=== PATIENT | female | born 1960 | race African-American/Black ===

== ENCOUNTER 2017-03-23 18:34 | Emergency (ER) | payer OTHER ==
[~2017-03-23] VITALS: Ht 162.6 cm; Wt 74.4 kg
[~2017-03-23 18:34] MED LIST: BACTRIM DS TAB1 EACH PO; CLONIDINE0.1; FLEXERIL PO; HYCET 7.5 MG-3473 ML PO; LORTAB 10 MG-3473 ML PO; MICARDIS HCT 81 EAC1 PO; MICARDIS40 MG PO; MUCOSA400 MG PO; NORCO 5-325 TA1 EACH PO; NORFLEX100 MG PO; NORVASC10 MG PO; OXYCODONE HCL 55 MG PO; OXYCONTIN10 M1 PO; PERCOCET 5-3251 EACH PO; PHENERGAN 25 MG25 M1 PO; PREDNISONE 20 M20 M1 PO; PREDNISONE 20 M20 MG PO; ROXICODONE5 M1 PO; ULTRAM 50MG TAB50 MG PO; VENTOLIN HFA 1818 GM INH; ZOFRAN ODT4 MG PO; ZPAK PO
[2017-03-23] MEDS ORDERED: NORFLEX100 MG PO (19:11)
[2017-03-23] MEDS ORDERED: CATAPRES0.2 MG PO (19:11)
[2017-03-23] MEDS ORDERED: PREDNISONE 10 M10 MG PO (19:11)
[2017-03-23] MEDS ORDERED: GABAPENTIN 100100 MG PO (19:11)
[2017-03-23 19:35] VITALS: BP 147/103
== END 2017-03-23 20:00 | disposition home or self-care (01) ==
LOC: ER 18:34
DX: M54.32 Sciatica, left side (principal); I10 Essential (primary) hypertension; R20.2 Paresthesia of skin; F17.210 Nicotine dependence, cigarettes, uncomplicated; Z76.0 Encounter for issue of repeat prescription; Z90.49 Acquired absence of other specified parts of digestive tract; Z98.890 Other specified postprocedural states; Z88.1 Allergy status to other antibiotic agents; Z88.6 Allergy status to analgesic agent; Z88.0 Allergy status to penicillin; Z88.8 Allergy status to other drugs, medicaments and biological substances

== ENCOUNTER 2017-09-28 19:45 | Inpatient (IN) | payer OTHER ==
[~2017-09-28] VITALS: Ht 162.6 cm; Wt 82.6 kg
--- NOTE | ~2017-09-28 | EKG ---
[address] [address] ELECTROCARDIOGRAM REPORT Name: ADDISON HARTMAN Room #: 443-P ADM IN M.R.#: [id number] Admission: 09/28/17 Attend Phys: Jaxon Barrera MD Discharge: Date of : 62 Report #: [id number] THIS REPORT FOR: //name// [facility] ED Test Date: 2017-09-28 Test Time: 20:41:14 Pat Name: ADDISON HARTMAN Department: Room: 44 Gender: F Flatwork Folder: GUSTAVO : 1960 Requested By: Cristofer Garza Order Number: [id number] MD: Ramin Spears Measurements Intervals [place] Rate: 87 P: 69 HI: 140 QRS: 55 QRSD: 82 T: 56 QT: 485 QTc: 584 Interpretive Statements Sinus rhythm Atrial premature complex Repol abnrm suggests ischemia, diffuse leads Prolonged QT interval No previous ECG available for comparison Electronically Signed On 09-29-2017 9:24:32 FILM DEVELOPING MACHINE OPERATOR by Ramin Spears [email or web address] <ELECTRONICALLY SIGNED> By: Ramin Spears MD 09/29/17923 40 2041 Ramin Spears MD /GINNY
[~2017-09-28 19:45] MED LIST changes: +CATAPRES0.2 MG PO; -CLONIDINE0.1; +CLONIDINE0.1 PO; +GABAPENTIN 100100 MG PO; +PREDNISONE 10 M10 MG PO
[2017-09-28 20:19] VITALS: BP 142/81
[2017-09-28 20:54] LABS: HEMATOCRIT 32.6 % (37.0-47.0); HEMOGLOBIN 11.3 gm/dL (12.0-15.0); MCH 29.3 pg (26.0-34.0); MCHC 34.7 g/dL (28.0-37.0); MCV 84.4 fL (80.0-100.0); RBC 3.86 mil/uL (4.20-5.00); RDW 15.2 % (10.5-14.5); WBC 10.6 thou/uL (4.0-11.0)
[2017-09-28 20:57] LABS: MANUAL DIFF YES
[2017-09-28 21:04] LABS: ANION GAP 9 mmol/L (7-16); BUN 10 mg/dL (7-18); CALCIUM 8.8 mg/dL (8.5-10.1); CHLORIDE 95 mmol/L (98-107); CO2 32 mmol/L (21-32); CREATININE 0.7 mg/dL (0.6-1.0); GLUCOSE 147 mg/dL (74-106); SODIUM 136 mmol/L (136-145)
[2017-09-28 21:13] LABS: ALBUMIN 3.3 g/dL (3.4-5.0); ALKALINE PHOSPHATASE 99 U/L (46-116); MAGNESIUM 1.7 mg/dL (1.8-2.4); SGOT 31 U/L (15-37); SGPT 23 U/L (30-65); TOTAL BILIRUBIN 0.4 mg/dL (<0.1-1.0); TOTAL PROTEIN 6.4 g/dL (6.4-8.2); TROPONIN-I < 0.04 ng/mL (<0.06)
[2017-09-28 21:14] LABS: POTASSIUM 2.9 mmol/L (3.5-5.1)
[2017-09-28] MEDS ORDERED: TRAMADOL 50 MG50 MG PO (21:46)
[2017-09-28] MEDS ORDERED: POTASSIUM20 PO (21:46)
[2017-09-28] MEDS ORDERED: DOXYCYCLINE 10100 MG PO (21:46)
[2017-09-28] MEDS ORDERED: ZOFRAN ODT8 MG PO (21:51)
[2017-09-28 22:06] LABS: ABSOLUTE NEUTROPHILS 9.2 thou/uL (1.4-8.2); ANISOCYTOSIS SLIGHT; LARGE PLATELETS OCCASIONAL; PLATELET COUNT 168 thou/uL (150-400); TOTAL CELL COUNT 100
[2017-09-28 22:27] LABS: URINE BILIRUBIN NEGATIVE (Negative); URINE BLOOD 2+ (Negative); URINE COLOR YELLOW; URINE GLUCOSE-RANDOM* NEGATIVE (Negative); URINE KETONES NEGATIVE (Negative); URINE PROTEIN (DIPSTICK) 1+ (Negative); URINE UROBILINOGEN 0.2 E.U./dl (0.2-1.0)
[2017-09-28 22:33] LABS: URINE LEUKOCYTES-REFLEX 1+ (Negative)
[2017-09-28 22:43] LABS: SQUAMOUS >10 Many /LPF (0-3)
[2017-09-28 22:44] LABS: CASTS None Seen /LPF (None Seen); URINE RBC 3-10 Few /HPF (0-2); URINE WBC-REFLEX 0-5 Rare /HPF (0-5)
[2017-09-28 22:45] LABS: CRYSTALS None Seen /LPF (None Seen)
[2017-09-28 22:56] VITALS: BP 131/71
[2017-09-28 23:21] VITALS: BP 109/55
[2017-09-29 04:00] VITALS: BP 140/97
[2017-09-29] MEDS ORDERED: CLONIDINE HCL0.3 M2 PO (05:37)
[2017-09-29 08:00] VITALS: BP 117/70
[2017-09-29 09:29] LABS: HEMATOCRIT 33.5 % (37.0-47.0); MCH 28.7 pg (26.0-34.0); MCHC 32.8 g/dL (28.0-37.0); MCV 87.6 fL (80.0-100.0); RBC 3.83 mil/uL (4.20-5.00); RDW 15.4 % (10.5-14.5); WBC 13.2 thou/uL (4.0-11.0)
[2017-09-29 09:34] LABS: CALCIUM 8.3 mg/dL (8.5-10.1); CREATININE 1.1 mg/dL (0.6-1.0); MAGNESIUM 1.9 mg/dL (1.8-2.4)
[2017-09-29 09:40] LABS: POTASSIUM 2.9 mmol/L (3.5-5.1)
[2017-09-29 12:28] LABS: ABG SAMPLE TYPE ARTERIAL; HCO3 28.7 mmol/L (22.0-26.0); LACTATE 3.02 mmol/L (0.5-2.0); O2(CT) 14.4 mL/dL (15.0-23.0); O2Hb 91.2 % (92.0-98.0); PCO2 39.1 mmHg (35.0-45.0); PO2 62.7 mmHg (80.0-100.0); pH 7.484 (7.360-7.450); sO2 93.6 % (92.0-98.0); tCO2 29.9 mmol/L (24.0-30.0)
[2017-09-29 12:29] LABS: FIO2 21 %; STICK SITE L.RADIAL
[2017-09-29 16:00] VITALS: BP 125/85
[2017-09-30 04:53] VITALS: BP 144/90
[2017-09-30 05:29] LABS: HEMATOCRIT 30.5 % (37.0-47.0); HEMOGLOBIN 10.1 gm/dL (12.0-15.0); MCH 28.8 pg (26.0-34.0); MCV 87.3 fL (80.0-100.0); PLATELET COUNT 209 thou/uL (150-400); RBC 3.49 mil/uL (4.20-5.00); RDW 15.4 % (10.5-14.5); WBC 14.3 thou/uL (4.0-11.0)
[2017-09-30 05:35] LABS: MANUAL DIFF YES
[2017-09-30 05:40] LABS: CALCIUM 7.7 mg/dL (8.5-10.1); CREATININE 0.7 mg/dL (0.6-1.0); POTASSIUM 3.4 mmol/L (3.5-5.1)
[2017-09-30 07:28] LABS: ABSOLUTE NEUTROPHILS 12.9 thou/uL (1.4-8.2); TOTAL CELL COUNT 100
[2017-09-30 07:29] LABS: ANISOCYTOSIS 1+
[2017-09-30 07:58] VITALS: BP 118/79
[2017-09-30] MEDS ORDERED: AZITHROMYCIN 2250 MG PO (10:11)
[2017-09-30] MEDS ORDERED: OXYCONTIN10 M1 PO (10:11)
[2017-09-30] MEDS ORDERED: CEFUROXIME500 MG PO (10:11)
[2017-09-30] MEDS ORDERED: PROTONIX 20 MG20 MG PO (10:11)
[2017-09-30] MEDS ORDERED: ALBUTEROL2.5 MG/0.5 INH (10:11)
[2017-09-30 10:42] VITALS: BP 118/79
== END 2017-09-30 14:58 | disposition home or self-care (01) | DRG 189 ==
LOC: ER 19:45 → EROBS 22:06 → 4S 22:57
PROVIDERS: Emergency Medicine; Hospitalist; Nurse Practitioner Family
DX: J96.21 Acute and chronic respiratory failure with hypoxia (principal); J18.9 Pneumonia, unspecified organism; J44.0 Chronic obstructive pulmonary disease with (acute) lower respiratory infection; N39.0 Urinary tract infection, site not specified; J44.1 Chronic obstructive pulmonary disease with (acute) exacerbation; E87.2 Acidosis; G89.29 Other chronic pain; I10 Essential (primary) hypertension; F12.90 Cannabis use, unspecified, uncomplicated; F17.210 Nicotine dependence, cigarettes, uncomplicated; M54.9 Dorsalgia, unspecified; E87.6 Hypokalemia; E83.42 Hypomagnesemia; M06.9 Rheumatoid arthritis, unspecified; Z87.442 Personal history of urinary calculi; Z79.899 Other long term (current) drug therapy; Z90.49 Acquired absence of other specified parts of digestive tract; Z88.6 Allergy status to analgesic agent; Z88.8 Allergy status to other drugs, medicaments and biological substances; Z88.0 Allergy status to penicillin
CPT/HCPCS: 10195

== ENCOUNTER 2017-10-12 13:01 | Emergency (ER) | payer OTHER ==
[~2017-10-12] VITALS: Ht 162.6 cm; Wt 72.6 kg
[~2017-10-12 13:01] MED LIST changes: +ALBUTEROL2.5 MG/0.5 INH; +AZITHROMYCIN 2250 MG PO; +CEFUROXIME500 MG PO; +CLONIDINE HCL0.3 M2 PO; +DOXYCYCLINE 10100 MG PO; +POTASSIUM20 PO; +PROTONIX 20 MG20 MG PO; +TRAMADOL 50 MG50 MG PO; +ZOFRAN ODT8 MG PO
[2017-10-12 15:23] LABS: ABSOLUTE NEUTROPHILS 3.4 thou/uL (1.4-8.2); BASOPHILS 1.1 % (0.0-2.0); EOSINOPHILS 0.9 % (0.0-3.0); HEMATOCRIT 37.9 % (37.0-47.0); HEMOGLOBIN 12.6 gm/dL (12.0-15.0); LYMPHOCYTES 36.6 % (24.0-44.0); MCH 28.9 pg (26.0-34.0); MCHC 33.1 g/dL (28.0-37.0); MCV 87.2 fL (80.0-100.0); MONOCYTES 7.1 % (1.0-8.0); PLATELET COUNT 279 thou/uL (150-400); POLYS 54.3 % (36.0-66.0); RBC 4.35 mil/uL (4.20-5.00); RDW 15.6 % (10.5-14.5); WBC 6.3 thou/uL (4.0-11.0)
[2017-10-12 15:36] LABS: CALCIUM 8.7 mg/dL (8.5-10.1)
[2017-10-12 16:20] VITALS: BP 122/70
== END 2017-10-12 16:21 | disposition home or self-care (01) ==
LOC: ER 13:01
PROVIDERS: Emergency Medicine
DX: F14.10 Cocaine abuse, uncomplicated (principal); E87.6 Hypokalemia; G89.29 Other chronic pain; M54.9 Dorsalgia, unspecified; I10 Essential (primary) hypertension; M19.90 Unspecified osteoarthritis, unspecified site; J45.909 Unspecified asthma, uncomplicated; F17.210 Nicotine dependence, cigarettes, uncomplicated; Z87.442 Personal history of urinary calculi; Z90.49 Acquired absence of other specified parts of digestive tract; Z88.1 Allergy status to other antibiotic agents; Z88.6 Allergy status to analgesic agent; Z88.0 Allergy status to penicillin

== ENCOUNTER 2019-03-01 11:57 | Emergency (ER) | payer OTHER ==
[~2019-03-01] VITALS: Ht 162.6 cm; Wt 77.1 kg
[2019-03-01] MEDS ORDERED: OXYCODONE HCL10 MG PO (12:29)
[2019-03-01] MEDS ORDERED: HYDROXYZINE HCL25 M1 PO (12:30)
[2019-03-01 12:59] VITALS: BP 165/100
== END 2019-03-01 12:59 | disposition home or self-care (01) ==
LOC: ER 11:57
DX: F41.9 Anxiety disorder, unspecified (principal); I10 Essential (primary) hypertension; G89.29 Other chronic pain; M54.9 Dorsalgia, unspecified; J44.9 Chronic obstructive pulmonary disease, unspecified; J45.909 Unspecified asthma, uncomplicated; M06.9 Rheumatoid arthritis, unspecified; Z87.442 Personal history of urinary calculi; Z88.1 Allergy status to other antibiotic agents; Z90.49 Acquired absence of other specified parts of digestive tract; Z88.6 Allergy status to analgesic agent; Z88.0 Allergy status to penicillin; Z88.8 Allergy status to other drugs, medicaments and biological substances

== ENCOUNTER 2019-03-02 23:49 | Emergency (ER) | payer OTHER ==
[~2019-03-02] VITALS: Ht 162.6 cm; Wt 77.1 kg
[~2019-03-02 23:49] MED LIST changes: +HYDROXYZINE HCL25 M1 PO; +OXYCODONE HCL10 MG PO
[2019-03-03 00:56] LABS: ABSOLUTE NEUTROPHILS 4.6 thou/uL (1.4-8.2); BASOPHILS 1.3 % (0.0-2.0); HEMOGLOBIN 13.7 gm/dL (12.0-15.0); LYMPHOCYTES 40.2 % (24.0-44.0); MCH 27.4 pg (26.0-34.0); MCHC 33.3 g/dL (28.0-37.0); MCV 82.2 fL (80.0-100.0); MONOCYTES 8.5 % (1.0-8.0); PLATELET COUNT 321 thou/uL (150-400); RBC 4.99 mil/uL (4.20-5.00); RDW 16.1 % (10.5-14.5); WBC 9.3 thou/uL (4.0-11.0)
[2019-03-03 01:12] LABS: ANION GAP 11 mmol/L (7-16); BUN 14 mg/dL (7-18); CALCIUM 9.8 mg/dL (8.5-10.1); CHLORIDE 102 mmol/L (98-107); CO2 27 mmol/L (21-32); CREATININE 0.8 mg/dL (0.6-1.0); GLUCOSE 121 mg/dL (74-106); SODIUM 140 mmol/L (136-145); TROPONIN-I <0.06 ng/mL (<0.06)
[2019-03-03 01:21] LABS: POTASSIUM 2.7 mmol/L (3.5-5.1)
[2019-03-03 02:00] LABS: URINE BILIRUBIN 1+ (Negative); URINE BLOOD NEGATIVE (Negative); URINE CLARITY CLEAR; URINE COLOR YELLOW; URINE GLUCOSE-RANDOM* NEGATIVE (Negative); URINE KETONES NEGATIVE (Negative); URINE LEUKOCYTES NEGATIVE (Negative); URINE NITRITE NEGATIVE (Negative); URINE PROTEIN (DIPSTICK) TRACE (Negative); URINE UROBILINOGEN 0.2 E.U./dl (0.2-1.0)
[2019-03-03 03:24] LABS: CREATININE 0.6 mg/dL (0.6-1.0); POTASSIUM 4.6 mmol/L (3.5-5.1)
[2019-03-03 05:29] VITALS: BP 134/95
--- NOTE | 2019-03-03 08:16 | EKG ---
[address] [address] ELECTROCARDIOGRAM REPORT Name: ADDISON HARTMAN Room #: DEP Barby#: [id number] ������������������ Admission: 03/02/19 ������������������ Attend Phys: Discharge: 03/03/19 ������������������ Date of : 62 Report #: [id number] ����������������������������������������������������������������� [id number] THIS REPORT FOR: //name// [facility] ED Test Date: 2019-03-03 Test Time: 00:27:54 Pat Name: ADDISON HARTMAN Department: Room: Gender: F Tourist Information Assistant: teofilo : 1960 Requested By: Jolie Mehta Order Number: [id number] MD: Adria Angelo Measurements Intervals [place] Rate: 72 P: 40 GA: 135 QRS: 35 QRSD: 81 T: 52 QT: 438 QTc: 480 Interpretive Statements Sinus rhythm Compared to ECG 09/28/2017 20:41:14 Atrial premature complex(es) no longer present Early repolarization no longer present Possible ischemia no longer present Electronically Signed On 03-03-2019 8:16:34 CDT by Adria Angelo [email or web address] ��������������������������������������������� <ELECTRONICALLY SIGNED> ���������������������������������������� By: Adria Angelo MD ��������������������������������������������� 03/03/19 0816 0027 0027 Adria Angelo MD /GINNY
== END 2019-03-03 05:31 | disposition home or self-care (01) ==
LOC: ER 23:49
PROVIDERS: Student in an Organized Health Care Education/Training Program
DX: I10 Essential (primary) hypertension (principal); Z91.14 Patient's other noncompliance with medication regimen; F17.210 Nicotine dependence, cigarettes, uncomplicated; M54.9 Dorsalgia, unspecified; G89.29 Other chronic pain; J44.9 Chronic obstructive pulmonary disease, unspecified; J45.909 Unspecified asthma, uncomplicated; M06.9 Rheumatoid arthritis, unspecified; Z87.442 Personal history of urinary calculi; Z88.1 Allergy status to other antibiotic agents; Z88.6 Allergy status to analgesic agent; Z90.49 Acquired absence of other specified parts of digestive tract; Z88.8 Allergy status to other drugs, medicaments and biological substances; Z88.0 Allergy status to penicillin

== ENCOUNTER 2019-08-10 17:39 | Inpatient (IN) | payer OTHER ==
[~2019-08-10] VITALS: Ht 170.2 cm; Wt 79.4 kg
[2019-08-10 17:39] VITALS: BP 131/79
[2019-08-10] MEDS ORDERED: TEMAZEPAM30 MG PO (17:59)
[2019-08-10 18:15] LABS: HEMATOCRIT 32.4 % (37.0-47.0); HEMOGLOBIN 10.7 gm/dL (12.0-15.0); MCH 25.4 pg (26.0-34.0); MCHC 32.9 g/dL (28.0-37.0); MCV 77.2 fL (80.0-100.0); RBC 4.19 mil/uL (4.20-5.00); RDW 18.1 % (10.5-14.5)
[2019-08-10 18:25] LABS: CALCIUM 9.2 mg/dL (8.5-10.1); CREATININE 0.9 mg/dL (0.6-1.0); SALICYLATE 5.3 mg/dL (2.8-20.0)
[2019-08-10 18:27] LABS: POTASSIUM 2.7 mmol/L (3.5-5.1)
[2019-08-10 19:59] LABS: URINE BILIRUBIN NEGATIVE (Negative); URINE BLOOD NEGATIVE (Negative); URINE CLARITY CLEAR; URINE COLOR YELLOW; URINE GLUCOSE-RANDOM* TRACE (Negative); URINE KETONES NEGATIVE (Negative); URINE LEUKOCYTES-REFLEX TRACE (Negative); URINE NITRITE-REFLEX NEGATIVE (Negative); URINE PROTEIN (DIPSTICK) NEGATIVE (Negative); URINE SPECIFIC GRAVITY 1.015 (1.005-1.035); URINE UROBILINOGEN 0.2 E.U./dl (0.2-1.0)
[2019-08-10 20:13] LABS: AMP/METHAMP Negative (Negative); BARBITURATES Negative (Negative); BENZODIAZEPINES POSITIVE (Negative); COCAINE POSITIVE (Negative); METHADONE Negative (Negative); OPIATES POSITIVE (Negative); PCP Negative (Negative)
[2019-08-10 21:29] VITALS: BP 104/62
[2019-08-10 22:33] VITALS: BP 100/64
[2019-08-10 23:51] LABS: PHOSPHORUS 2.3 mg/dL (2.5-4.9)
[2019-08-11 00:18] LABS: FOLIC ACID 21.7 ng/mL (8.6-58.9)
--- NOTE | 2019-08-11 02:24 | NUR ---
Pt. took herself to [facility] ED with c.o. suicide ideation. She said she is "fed up" and "it feels like when I get better something else comes along and makes it worse". She said she planned to take pills to kill herself, which she has, however her daughter sent her a picture when was beautiful and it stopped her. Reports she hasn't been eating or sleeping well. She also said she sees demons telling her to kill herself. Onset of all symptoms about 3 months ago she said, and she said would like inpatient. During this writers assessment she said she had SI because she was "tired of the sciatica pain, low back down the legs". She arrived at 2140 in evening from ED, was hungry, CIWA = 0, very tired. When she was awakened later for more assessments, she yelled and shouted "why not leave me alone" She had eaten a large snack and was sleeping soundly. CIWA q 1hour was 0 again. Stat potassium med. and magn. oxide to start tonite per DIRECTOR INVESTMENT BANKING was ordered and she was awakened to give those which she took with Haldol 5 mg. for anxiety she showed this evening. This was effective. She named the home meds. she takes, Gabapentine, Hydroxyzine,and Clondine, last time unknown. She signed in voluntary. She was asked if she abuses drugs or alcohol and she said "only marijuana", however her UDS was pos. for cocaine, opiates, benzos, THC, and alcohol level 153. Her VS were tn=429/64, p=64, oxy. sat 95-100% and T=98.7F. At 0230 her CIWA is 0 she is sound asleep lightly snoring. She ambulates without assistance, continent. She said hx. of psych. hospital 1 other time a while ago (unknown) for SI she said. No other times. .
[2019-08-11 05:36] LABS: CALCIUM 8.8 mg/dL (8.5-10.1); CREATININE 0.9 mg/dL (0.6-1.0); MAGNESIUM 1.6 mg/dL (1.8-2.4); PHOSPHORUS 2.3 mg/dL (2.5-4.9)
[2019-08-11 05:46] LABS: POTASSIUM 2.9 mmol/L (3.5-5.1)
--- NOTE | 2019-08-11 07:49 | NUR ---
The pt. scored 3 on CIWA this morning, mildly anxious when awakened or talked with because she didn't want to be disturbed. She was compliant with blood labs this morning, slept soundly, up in the nite to the bathroom indepedently
[2019-08-11 10:09] LABS: CALCIUM 9.2 mg/dL (8.5-10.1); CREATININE 0.9 mg/dL (0.6-1.0)
[2019-08-11 10:20] LABS: POTASSIUM 2.9 mmol/L (3.5-5.1)
--- NOTE | 2019-08-11 10:29 | NUR ---
PATIENT PLEASANT AND ENGAGING. WELL GROOMED AND ALERT AND ORIENTED X4 - PATIENT STATES NO THOUGHTS OF S/I CURRENTLY. BELKYS HAS EPISODE IN 2011 WHERE HE WAS FRUSTRATED WITH AND TOOK OVERDOSE. BELKYS HAS BEEN LONG TIME AND VERY DEPENDENT ON HIM. SHE SUFFERS FROM MEDICAL ISSUES THAT PUT STRAIN ON THEIR RELATIONSHIP. HE HAS TO DO EVERYTHING AND SHE IS UNWILLING TO ACCEPT OUTSIDE HELP. FIXATED ON HOME SITUATION WHICH CAUSES HIM GREAT STRESS. FEELS SOMETIMES ONLY OUT OF SITUATION IS BY DYING. REMORSEFUL FOR HIS ACTIONS AND STATES SOMETIMES FEELS GAINING DPOA OVER HER WOULD BE BETTER SOLUTION. AMBULATES AROUND INDEPENDENTLY, MAKES NEEDS KNOWN AND VERY RESPONSIVE TO QUESTIONS ADDRESSED TO HIM. STATED ANXIETY AT 5 AND SO IS DEPRESSION - AFFECT AGREEABLE AND MOOD SOMEWHAT FRUSTRATED AND IRRITATED - BASICALLY WITH AND HER INDIFFERENCE TO HIS NEEDS. PATIENT STATED HAS KNEE PAIN BUT TYLENOL HELPS WITH DISCOMFORT. STATES NEEDS MORE ROUGHAGE FOR HIS CONSTIPATION ISSUES AND REQUESTED WHOLE APPLES WITH MEALS MORE OFTEN. MEDICATION COMPLIANT AND GOOD APPETITE.
--- NOTE | 2019-08-11 11:11 | NUR ---
MARÍA FROM LAB CALLED AT 10AM THIS MORNING. SHE STATED CORRECTION ON ETOH LEVEL FIRST DOCUMENTED LAST EVENING PF 153. STATES MISLABELED AND WRONG INFORMATION FORWARDED. CALMS SHOULD HAVE BEEN LESS THAN TEN WHICH IS A NEGATIVE ` EXPLAINED WOULD MAKE REVISIONS. THEN LAB CALLED BACK ONCE AGAIN AT 2230 WITH POTASSIUM LEVEL OF 2.9 CRITICAL VALUE. EXPLAINED PATIENT HAD REFUSED HER MORNING MEDICATIONS WHICH INCLUDED DOSAGES OF POTASSIUM ANT 0700 AND 0800. APPROACHED PATIENT AFTERWARDS TO EXPLAIN IMPORTANCE AND AGREED TO TAKE HER POTASSIUM FROM 8AM WHICH WAS 20 MEQ. GIVEN AT 2230. EXPLAINED LAB HAD CONTACTED US AND POTASSIUM WAS LOW. PATIENT WAS RELUCTANT AND VERY IRRITATED - VOICING HER OBJECTIONS BUT DID TAKE THAT ONE PILL. REFUSED ALL THE OTHER MORNING MEDICATIONS THOUGH. PATIENT HAS BEEN IN BED - NOT GETTING UP FOR BREAKFAST AND UNCOOPERATIVE WITH STAFF. SHE REFUSED VITALS THIS MORNING WELL AND DID NOT ATTEND MORNING GROUPS. PATIENT ISOLATIVE TO HER ROOM -
[2019-08-11 13:23] VITALS: BP 136/84
--- NOTE | 2019-08-11 14:46 | NUR ---
PATIENT VERY IRRITABLE THIS MORNING WHEN CARE TAKEN OVER FROM RUBBER STAMP ASSEMBLER. APPROACHED EARLY AND WAS ABRUPTLY SENT OUT OF HER ROOM. REFUSED TO TAKE MORNING MEDICATIONS - STATING TOO MANY PEOPLE HAVE BEEN IN HER SPACE. DENIES NO WHEN QUESTIONED ON SUICIDE AND YELLED IT PRETTY LOUDLY. SHE REFUSED VITALS AND ISOLATIVE. DID NOT GET UP FOR BREAKFAST AND FINALLY MEADERED OUT FOR LUNCH. ADVISED ABOUT POTASSIUM LEVELS BEING LOW AND IMPORTANCE TO TAKE SUPPLIEMENTS ORDERED. PATIENT FINALLY TOOK LATER IN THE MORNING BUT WOULD NOT TAKE MORNING MEDICATIONS. ATE LUNCH AND RETURNED TO HER ROOM. SHE HAS BEEN IN BED MOST OF THE DAY SLEEPING. UNWILLING TO ANSWER ANY QUESTIONS ADDRESSED TO HER. ASSESSMENT WAS VAGUE DUE TO INABILITY TO HAVE PATIENT TALK TO STAFF. HAVE BLOOD DRAW THIS MORNING. POTASSIUM LEVEL REMAINED AT 2.9 - SINCE SHE HAD REFUSED MORNING DOSAGES. PATIENT REMAINS IN HER ROOM - IRRITABLE AND EVASIVE TO ANY CARES OR QUESTIONS ADDRESSED TO HER.
[2019-08-11 20:17] VITALS: BP 157/102
[2019-08-11 21:00] VITALS: BP 144/88
[2019-08-11 22:00] VITALS: BP 144/88
--- NOTE | 2019-08-11 23:48 | NUR ---
PATIENT OUT IN DINING ROOM TILL BED TIME THIS EVENING. SHE HAS FLAT EFFECT. SHE DID TAKE HER MEDS ORDERED. SHE WENT TO BED AROUND 0 AND C/O COUGH.I HAVE NOT HEARD IT BUT SHE SAYS IT'S NONPRODUCTIVE WITH SLIGHT SORETHROAT. DR AVILA NOTIFIED AND ORDERED CEPACOL LOZENGE Q2HR PRN. THIS WAS GIVEN TO PATIENT AND SHE IS NOW SLEEPING. HER LUNGS CTA BILATERALLY. TYLENOL GIVEN D/T C/O BACK DISCOMFORT AT 4/10. PATIENT AMBULATES AND IS INDEPENDENT WITH CARES. NO SI/HI TONIGHT. WILL CONTINUE TO MONITOR.
[2019-08-12 09:27] VITALS: BP 160/101
--- NOTE | 2019-08-12 10:52 | NUR ---
Nutrition: Seen for follow up on H unit today. Attempting to collect more nutrition hx details to determine if she meets malnutrition criteria. Spoke w/ staff who indicated pt was grumpy. RD met pt in room. She immediately got angry, not wanting to talk. Did answer [address] question regarding oral nutrition supplements. Pt agrees to continue receiving 1/day for extra po benefit. She has completed 100% of all recorded meals on unit thus far. 100% of lunch / dinner yesterday, 100% of breakfast today. Continues on magnesium and potassium chloride as well as thiamine, MVI. Given consistent po trends showing 100% intake, with pt agreement to continue daily Ensure Enlive, will change to low nutrition risk and follow for any nutritional decline.
--- NOTE | 2019-08-12 10:57 | NUR ---
Nutrition follow up: Weekly follow up. No new changes from week to week. Chart reviewed. 100% meal intake each and every meal per the last week. RD initially obtained provider permission to add on slight calorie/carb restriction to diabetic diet on 08/05 given ongoing wt gain (+18# since admit 05/2019). Pt was on this new diet for a few days, but calorie restriction lifted earlier this week. Continues on carb controlled, pureed, nectar thick liquids though. Wt down slightly from 154# 08/01 to 151.5# on 08/08. BMI now 29.6. Remains on SSI as needed. Fasting BG good today at 110 mg/dl, but BG ranged 122-203 mg/dl on 08/11. Will be dc'ing marilyn per SW notes as soon as Level II completed. Remains low nutrition risk.
--- NOTE | 2019-08-12 12:23 | NUR ---
SW again attempted to complete an initial assessment with pt. She responded that she did not feel well and was not in the mood to talk. SW explained that the assessment was an essential part of treatment. Pt again refused. SW and psych doctor talked with pt together in which psych doctor asked about pt's living arrangements. She responded that she was living with her boyfriend before he kicked her out. SW asked if she had worked with Mr. Trent before and her response was that he can never help her. Pt said she was okay with SW contacting 211 and finding information on shelters she can go to.
--- NOTE | 2019-08-12 12:30 | NUR ---
JAIMIE contacted [employer] and received information for [facility] [phone]. SW contacted [facility] who said she will need to call in the morning to see if they had any bed availabilty for pt. SW team will continue to follow pt during her stay.
--- NOTE | 2019-08-12 16:09 | NUR ---
PATIENT WAS IN BED WHEN CARE ASSUMED. PATIENT NOTIFIED THAT IT WAS TIME FOR BREAKFAST, AND STATES " I DON'T WANT BREAKFAST". PATIENT CAME OUT OF ROOM SHORTLY AFTER MAKING THE STATEMENT, CONSUMED 100% BREAKFAST, SHE ATE 100% LUNCH ALSO. PATIENT IS DRINKING FLUID WELL. PATIENT HAS TAKEN ALL MEDICATION WHOLE WITHOUT DIFFICULTY TODAY. PATIENT DENIES SUICIDAL IDEATION "NOT ANYMORE". SHE DENIES AUDITORY HALLUCINATION. PATIENT RATED BOTH DEPRESSION/ANXIETY 9/10, PATIENT STARTED ON ZOLOFT THIS AFTERNOON. PATIENT ISOLATED SELF TO ROOM AFTER BREAKFAST, DECLINE GROUP PARTICIPATED. PATIENT ALSO REFUSED LAB DRAW. SHE IS CURRENTLY SITTING IN DAY ROOM WATCHING TV. NO SIGN OF ACUTE DISTRESS NOTED AT THIS TIME, WILL MONITOR FOR SAFETY.
[2019-08-12 20:14] VITALS: BP 160/104
--- NOTE | 2019-08-12 23:28 | NUR ---
Care assumed of patient at 1915: Patient sitting in dayroom at start of shift. Patient alert and oriented x4. Calm, pleasant and cooperative. Patient denies SI/HI/AH/VH at this time. Reports depression and anxiety 04/14. No s/s of patient experiencing anxiety observed. Patient does present with a flat affect. Patient requested to receive something to assist her to sleep. Patient provided PRN Trazodone with HS medication. Patient also reported lower back pain and was provided PRN Tylenol. Patient was able to retire to bed without difficulty and appeared to be resting quite well. However, patient is now up and in the day room reporting that she can't sleep. Patient has not been irritable or agitated for this nurse. Patient ate 100% HS snack. Took HS medication without difficulty.
[2019-08-13] MEDS ORDERED: CATAPRES0.1 MG PO (11:55)
[2019-08-13] MEDS ORDERED: GABAPENTIN 100100 MG PO (11:56)
[2019-08-13] MEDS ORDERED: ZOLOFT 50 MG TA50 M1 PO (11:57)
[2019-08-13] MEDS ORDERED: HALOPERIDOL 1 MG1 MG PO (11:57)
[2019-08-13 12:04] VITALS: BP 160/104
--- NOTE | 2019-08-13 12:06 | EKG ---
[address] [employer] [place] [address] ELECTROCARDIOGRAM REPORT Name: CASSANDRA HARTMANFIORELLA JOY Room #: 523B-B ADM IN M.R.#: [id number] Admission: 08/10/19 Attend Phys: Jaxon Castro DO Discharge: Date of : 62 Report #: [id number] THIS REPORT FOR: //name// [facility] ED Test Date: 2019-08-10 Test Time: 21:14:16 Pat Name: ADDISON HARTMAN Department: Room: [facility] Gender: F Human Resources Technician: teofilo : 1960 Requested By: Chaya Escobar Order Number: [id number] MD: Ramin Spears Measurements Intervals [place] Rate: 62 P: 45 NV: 141 QRS: 38 QRSD: 90 T: 46 QT: 441 QTc: 448 Interpretive Statements Sinus rhythm Compared to ECG 03/03/2019 00:27:54 No significant changes Electronically Signed On 08-13-2019 12:06:01 MANAGER WELDING by Ramin Spears [email or web address] <ELECTRONICALLY SIGNED> By: Ramin Spears MD 08/13/19 1206 2114 2114 Ramin Spears MD /GINNY
[2019-08-13 12:16] VITALS: BP 160/104
--- NOTE | 2019-08-13 12:23 | NUR ---
THE PATIENT IS ALERT AND ORIENTED X4. SHE IS INDEPENDENT PER ADL'S AND AMBULATES WITH A STEADY GAIT. SHE HAS BEEN QUIET AND COMPLIANT WITH MEDICATIONS AND HEALTH CARE. THE PATIENT HAS BATHROOM PRIVILEGES. SHE IS A POSSIBLE DISCHARGE TODAY.
--- NOTE | 2019-08-13 12:51 | NUR ---
JAIMIE D/C note SW contacted [facility] who said they had a bed for pt, but she has to have a conversation with the program director air talent due to a past stay. The rep wanted SW to relay to pt that this conversation will not guarantee she can stay, but is necessary before she can. JAIMIE provided an updated to pt who said that was fine. JAIMIE assisted in pt's discharge by helping to gather her things from security. JAIMIE walked pt to the main entrance and waited for her transportation with her; a [employer] bob[employer] driver came to retrieve her. No other needs for SW team to address at this time.
--- NOTE | 2019-08-15 10:36 | H ---
[facility] [address] HISTORY AND PHYSICAL Name: ADDISON HARTMAN Room #: 523B-B [facility] IN M.R.#: [id number] Admission: 08/10/19 Attend Phys: Jaxon Castro DO Discharge: 08/13/19 Date of : 62 Report #: [id number] THIS REPORT FOR: //name// CC: Jaxon Castro FAM physician/PCP DATE OF SERVICE: 08/11/2019 INPATIENT PSYCHIATRIC EVALUATION ATTENDING PHYSICIAN: Jaxon Castro DO. PHOSPHORUS PROCESSING SUPERVISOR: Ashleigh Miller APRN. REASON FOR ADMISSION: Suicidal ideation, planned overdose on pills, auditory command hallucinations to commit suicide. HISTORY OF PRESENT ILLNESS: This is a 59-year-old black female who presented to the Emergency Room with suicidal ideation. She told the ER personnel she was "fed up" and states it feels like when she gets better something else comes along and makes it worse. The patient reports having suicidal thoughts with plans to take pills. States her daughter sent her a picture, which was beautiful what stopped her from following through. States she has had suicidal ideation before, plans to overdose on pills, but she had never attempted suicide. The patient reports that she has not been sleeping or eating well recently and she is currently very hungry and tired. She admits to "once of a beer tonight," but she does not normally drink alcohol. PAST MEDICAL HISTORY: Hypertension, chronic back pain, COPD, asthma, rheumatoid arthritis and sciatica. The patient states she normally takes gabapentin, hydroxyzine, another medication she cannot remember. She reports being off all meds x 2 weeks. The patient is requesting that she be admitted for a few days as she feels unsafe with her thoughts. Jonathan JULIEN. Psychiat[place], [place]. Wu [place] [facility] [place] PAST SURGICAL HISTORY: Cholecystectomy, tubal ligation, appendectomy. MEDICAL HISTORY: Chronic back pain, COPD, asthma, rheumatoid arthritis severe, kidney stones "3 small ones." REPORTED MEDICATIONS: Amlodipine 10 mg p.o. daily, clonidine 0.3 mg p.o. b.i.d., oxycodone IR 10 mg p.o. daily p.r.n., hydroxyzine 25 mg p.o. t.i.d., temazepam 30 mg p.o. at bedtime. There is also noted gabapentin 100 mg t.i.d. and albuterol q.4 p.r.n. REVIEW OF SYSTEMS: From the ER, [facility] [address] [place] [address] HISTORY AND PHYSICAL Name: ADDISON HARTMAN Room #: [facility] IN .R.#: [id number] Admission: 08/10/19 Attend Phys: Jaxon Castro, Discharge: 08/13/19 Date of : 62 Report #: [id number] CONSTITUTIONAL: Denies fever, chills, malaise, unexplained weight change. EYES: Denies eye pain, visual change or discharge. HENT: Denies hearing changes, ear drainage, ear infections, ear pain, neck pain or neck stiffness. RESPIRATORY: Denies cough, shortness of breath, hemoptysis or respiratory distress. CARDIOVASCULAR: Denies chest pain, chest pain with exertion or edema. GASTROINTESTINAL: Denies abdominal pain, nausea, vomiting or diarrhea. GENITOURINARY: Denies burning or frequency. MUSCULOSKELETAL: Denies back pain, joint pain, muscle weakness or myalgias. SKIN: Denies rash. NEUROLOGIC: Denies weakness, headache or loss of consciousness. Otherwise, 10-point review of systems is negative. PSYCHIATRIC: As above. PHYSICAL EXAMINATION: Grossly normal. LABORATORY DATA: EKG which showed sinus rhythm, rate of 62, normal axis, no ST-T changes. Urine drug screen was positive for opiates, positive for benzodiazepines, positive for cocaine, positive for marijuana. Other significant laboratories, phosphorus 2.3, low today, magnesium 1.4. GGT 38. Vitamin B12 of 661. Folate 21.7. Salicylate 5.3. Urinalysis showed trace glucose, trace leukocyte esterase. Chemistry: Sodium 144, potassium 2.7, which is low, chloride 101, bicarbonate 36, anion gap 7, BUN 20, creatinine 0.9, estimated GFR 78, glucose 99, calcium 9.2. White count 7.0, H and H 7.7 and 32.4, platelet count 287. Acetaminophen less than 2. VITAL SIGNS: Today, temperature 36.9, pulse 55, respirations 16, BP 136/84, O2 sat 94%. MUSCULOSKELETAL: Normal gait and station, disheveled in hospital gown. MENTAL STATUS EXAMINATION: This is a well-developed, disheveled black female appearing at least stated age. Attention fair. Concentration fair. Speech is normal in rate, volume, and tone. Thought process is linear and goal directed. Thought content focused on ameliorating, feeling awful. No psychomotor agitation. No psychomotor retardation. Endorsed SI. Denied HI. Denied auditory. Denied visual. Denied tactile hallucinations. Memory not formally tested. Insight limited. Judgment limited. Fund of knowledge no greater than average. FORMULATION: A 59-year-old black female presenting with polysubstance intoxication and suicidal ideation. DIAGNOSES: Unspecified depression, substance use disorder for cocaine, marijuana, cannot exclude alcoholism pathology at this point. [facility] [address] [place] [address] HISTORY AND PHYSICAL Name: ADDISON HARTMAN Room #: [address] [place] [address] IN M.R.#: [id number] Admission: 08/10/19 Attend Phys: Jaxon Castro DO Discharge: 08/13/19 Date of : 62 Report #: [id number] PLAN: The patient is admitted to Geriatric Psychiatry Unit. Evaluate and stabilize. I am going to start her on 1 mg t.i.d. for the auditory hallucinations, command hallucinations to kill herself. I think she is coming down off recent cocaine use. The patient is an unreliable historian. Also, nursing staff member, who works at [employer], noted her as relatively frequent visitor over there. ALLERGIES: KETOROLAC, PENICILLIN, IBUPROFEN AND CELECOXIB. OTHER MEDICATIONS: The patient is on potassium chloride 20 mEq p.o. daily via hospitalist, magnesium oxide 400 mg p.o. daily, thiamine 100 mg p.o. daily, vitamins, hydroxyzine 25 mg t.i.d. Gabapentin 100 mg p.o. t.i.d., famotidine 10 mg p.o. daily, clonidine 0.1 mg p.o. b.i.d., lorazepam she is on for withdrawal due to concern of alcoholism. She has not shown withdrawal symptomatology, continue to evaluate, stabilize. ESTIMATED LENGTH OF STAY: 3-5 days. STRENGTHS: She is insured. WEAKNESSES: Chronic drug use. Recent psychiatric hospitalizations elsewhere. <ELECTRONICALLY SIGNED> By: Jaxon Castro DO 08/15/19 1036 1723 1756 Jaxon Castro DO /nt
--- NOTE | 2019-08-15 11:29 | D ---
[facility] [place] [address] [address] [place] [address] DISCHARGE SUMMARY Name: ADDISON HARTMAN Room #: [facility] M.R.#: [id number] Admission: 08/10/19 Attend Phys: Jaxon Castro DO Discharge: 08/13/19 Date of : 62 Report #: [id number] THIS REPORT FOR: //name// CC: Jaxon Castro [facility] physician/PCP DATE OF SERVICE: 08/13/2019 INPATIENT PSYCHIATRIC DISCHARGE SUMMARY ATTENDING PHYSICIAN: Jaxon Castro DO [employer]IATE: Jaxon Barrera MD DISCHARGE DIAGNOSES: Unspecified psychosis, greatly improved, likely secondary to exposure to crack cocaine. The patient has several substance problems as well as some antisocial personality traits. DISCHARGE PLAN: She is discharged to [facility] care home. For her psychiatric care, she will need to walk in for an intake appointment. DISCHARGE DIET: Regular. No alcohol, no illicit drugs. MEDICATIONS: Clonidine 0.1 mg p.o. twice per day for hypertension; gabapentin 100 mg p.o. at 0900, 1300, 1700 for pain control and impulse control including relapse prevention; sertraline 50 mg p.o. daily for depression, and I gave her a limited course 21 tablets of 1 mg Haldol to be taken at 9:00, 4:00 and 9:00 p.m. for psychosis. PERTINENT LABORATORY DATA: From this admission include a urine drug screen with positives for cocaine, marijuana, benzodiazepines, and opioids. Negative urinalysis. Chemistry is grossly normal except for low potassium and slightly high CO2. Hematology: She is anemic with a hemoglobin 10.7, hematocrit 32.4, white count of 7.10, platelet count 287. REASON FOR ADMISSION: Admitted through the Emergency Room complaining of being fed up and suicidal ideation, now requesting to be admitted for "a few days," feels unsafe with her thoughts. The patient reported having suicidal thoughts with plan to take pills. She also is well known to several of the other very good psychiatric hospitals including [facility]. HOSPITAL COURSE: The patient was admitted to Geriatric Psychiatry Unit. She was hypersomnolent. She generally refused to go to groups or participate including the day before discharge. Her psychiatrist is Dr. Wu at [facility]. Seroquel is to be started on 50 mg p.o. daily. She was briefly on a withdrawal [facility] [address] [place] [address] DISCHARGE SUMMARY Name: ADDISON HARTMAN RUFINO Room #: [facility] M.R.#: [id number] Admission: 08/10/19 Attend Phys: Jaxon Castro DO Discharge: 08/13/19 Date of : 62 Report #: [id number] protocol, but regarding the symptomatology, this was discontinued. PHYSICAL EXAMINATION: VITAL SIGNS: At time of discharge, temperature is 36.9, pulse 59, BP 150/104, O2 sat 98%. Quite unsure why her blood pressure was that high, but the patient is aware that it is an issue. MUSCULOSKELETAL: Normal gait and station. MENTAL STATUS EXAMINATION: This is a well-developed, fairly nourished black female, appearing approximately stated age. Attention fair. Concentration fair. Speech is normal in rate and tone. Thought process is linear and goal directed. Thought content focused on discharge. Not any suicidal or homicidal ideation. Denied hopelessness, helplessness. She does have slight auditory hallucination. Denied visual, tactile, or auditory hallucinations or whispers or where she was hearing a voice telling her to kill herself. The patient is future oriented. Insight limited. Judgment limited. Fund of knowledge, no greater than average. PROGNOSIS: For this patient is quite guarded given her homelessness, low motivation and exhibit of behaviors that would strengthen her mental health and potentiate sobriety. <ELECTRONICALLY SIGNED> By: Jaxon Castro DO 08/15/19 [id number] Jaxon Castro DO /nt
== END 2019-08-13 12:30 | disposition home or self-care (01) | DRG 881 ==
LOC: ER 17:39 → EROBS 21:00 → SBH 21:00 → EROBS 21:00 → SBH 21:32
PROVIDERS: Emergency Medicine; Nurse Practitioner Family; ADMIT Psychiatry & Neurology Psychiatry
DX: F32.9 Major depressive disorder, single episode, unspecified (principal); R45.851 Suicidal ideations; I10 Essential (primary) hypertension; J44.9 Chronic obstructive pulmonary disease, unspecified; F12.10 Cannabis abuse, uncomplicated; E87.6 Hypokalemia; T40.5X2A Poisoning by cocaine, intentional self-harm, initial encounter; E83.42 Hypomagnesemia; F14.10 Cocaine abuse, uncomplicated; M06.9 Rheumatoid arthritis, unspecified; M54.30 Sciatica, unspecified side; G89.29 Other chronic pain; M54.9 Dorsalgia, unspecified; Z90.49 Acquired absence of other specified parts of digestive tract; Z87.442 Personal history of urinary calculi; Z88.6 Allergy status to analgesic agent; Z88.1 Allergy status to other antibiotic agents; Z88.8 Allergy status to other drugs, medicaments and biological substances; Z88.0 Allergy status to penicillin; Y92.89 Other specified places as the place of occurrence of the external cause
CPT/HCPCS: 10880

== ENCOUNTER 2019-11-13 18:03 | Emergency (ER) | payer OTHER ==
[~2019-11-13] VITALS: Ht 162.6 cm; Wt 72.6 kg
--- NOTE | ~2019-11-13 | EKG ---
[facility] [place] [address] [place] [address] ELECTROCARDIOGRAM REPORT Name: CASSANDRA HARTMANFIORELLA JOY Room #: PRE M.R.#: [id number] Admission: Attend Phys: Discharge: Date of : 62 Report #: [id number] THIS REPORT FOR: cc: ANKITA Yu family physician/PCP ANKITA Yu family physician/PCP Margarita Avila MD ~ THIS REPORT FOR: //name// [facility] ED Test Date: 2019-11-13 Test Time: 18:05:40 Pat Name: ADDISON HARTMAN Department: Room: Gender: F Probation Worker: KALPESH : 1960 Requested By: Moisés Taveras Order Number: [id number] MD: Measurements Intervals [place] Rate: 78 P: 53 DC: 146 QRS: 20 QRSD: 79 T: 37 QT: 385 QTc: 439 Interpretive Statements Sinus rhythm Compared to ECG 08/10/2019 21:14:16 No significant changes [email or web address] By: 04 04 Margarita Avila MD /EPI
[~2019-11-13 18:03] MED LIST changes: +CATAPRES0.1 MG PO; +HALOPERIDOL 1 MG1 MG PO; +TEMAZEPAM30 MG PO; +ZOLOFT 50 MG TA50 M1 PO
[2019-11-13 18:31] LABS: ABSOLUTE NEUTROPHILS 3.4 thou/uL (1.4-8.2); BASOPHILS 0.8 % (0.0-2.0); EOSINOPHILS 1.3 % (0.0-3.0); HEMATOCRIT 32.3 % (37.0-47.0); HEMOGLOBIN 10.4 gm/dL (12.0-15.0); LYMPHOCYTES 43.6 % (24.0-44.0); MCH 26.8 pg (26.0-34.0); MCHC 32.2 g/dL (28.0-37.0); MCV 83.3 fL (80.0-100.0); MONOCYTES 6.9 % (1.0-8.0); PLATELET COUNT 236 thou/uL (150-400); POLYS 47.4 % (36.0-66.0); RBC 3.88 mil/uL (4.20-5.00); RDW 19.4 % (10.5-14.5); WBC 7.1 thou/uL (4.0-11.0)
[2019-11-13 18:35] LABS: ANION GAP 8 mmol/L (7-16); BUN 23 mg/dL (7-18); CALCIUM 8.5 mg/dL (8.5-10.1); CHLORIDE 103 mmol/L (98-107); CO2 30 mmol/L (21-32); GLUCOSE 99 mg/dL (74-106); SODIUM 141 mmol/L (136-145)
[2019-11-13 18:41] LABS: ALBUMIN 3.5 g/dL (3.4-5.0); SGOT 21 U/L (15-37); SGPT 18 U/L (30-65); TOTAL BILIRUBIN 0.2 mg/dL (<0.1-1.0); TOTAL PROTEIN 7.1 g/dL (6.4-8.2)
[2019-11-13 18:53] LABS: URINE BILIRUBIN NEGATIVE (Negative); URINE BLOOD NEGATIVE (Negative); URINE CLARITY CLEAR; URINE COLOR YELLOW; URINE GLUCOSE-RANDOM* NEGATIVE (Negative); URINE KETONES NEGATIVE (Negative); URINE LEUKOCYTES-REFLEX NEGATIVE (Negative); URINE NITRITE-REFLEX NEGATIVE (Negative); URINE PROTEIN (DIPSTICK) NEGATIVE (Negative); URINE SPECIFIC GRAVITY >= 1.030 (1.005-1.035); URINE UROBILINOGEN 0.2 E.U./dl (0.2-1.0)
[2019-11-13 19:00] LABS: AMP/METHAMP Negative (Negative); BARBITURATES Negative (Negative); BENZODIAZEPINES POSITIVE (Negative); COCAINE Negative (Negative); METHADONE Negative (Negative); OPIATES POSITIVE (Negative); PCP Negative (Negative)
[2019-11-13 23:40] VITALS: BP 129/82
== END 2019-11-13 23:54 | disposition home or self-care (01) ==
LOC: ER 18:03
PROVIDERS: Emergency Medicine
DX: T42.6X2A Poisoning by other antiepileptic and sedative-hypnotic drugs, intentional self-harm, initial encounter (principal); G89.29 Other chronic pain; M54.9 Dorsalgia, unspecified; I10 Essential (primary) hypertension; J44.9 Chronic obstructive pulmonary disease, unspecified; F17.210 Nicotine dependence, cigarettes, uncomplicated; Z88.0 Allergy status to penicillin; Z88.8 Allergy status to other drugs, medicaments and biological substances; Z90.49 Acquired absence of other specified parts of digestive tract; Y92.89 Other specified places as the place of occurrence of the external cause